=== PATIENT | male | born 1955 | race Caucasian/White ===

== ENCOUNTER 2024-06-26 10:30 | Emergency (ER) | payer OTHER ==
[2024-06-26 10:42] VITALS: BP 143/94; PULSE 79
== END 2024-06-26 11:55 | disposition home or self-care (01) ==
LOC: FB.ED 10:30
DX: T15.01XA Foreign body in cornea, right eye, initial encounter (principal); E78.00 Pure hypercholesterolemia, unspecified; E66.9 Obesity, unspecified; Z79.899 Other long term (current) drug therapy; W45.8XXA Other foreign body or object entering through skin, initial encounter
CPT/HCPCS: 99283